=== PATIENT | female | born 1950 | race Caucasian/White ===

== ENCOUNTER → 2017-04-18 | Outpatient (CLI) | payer OTHER, MEDICARE | LOC: CIMAGING 07:09 | PROVIDERS: ATTEND Obstetrics & Gynecology Gynecology | DX: Z12.31 Encounter for screening mammogram for malignant neoplasm of breast (principal) | CPT/HCPCS: G0202 ==

== ENCOUNTER → 2018-04-22 | Outpatient (CLI) | payer OTHER, MEDICARE | LOC: CIMAGING 08:12 | PROVIDERS: ATTEND Internal Medicine | DX: Z12.31 Encounter for screening mammogram for malignant neoplasm of breast (principal) ==

== ENCOUNTER → 2018-05-06 | Outpatient (CLI) | payer OTHER, MEDICARE | LOC: CIMAGING 12:47 | PROVIDERS: ATTEND Internal Medicine | DX: R92.8 Other abnormal and inconclusive findings on diagnostic imaging of breast (principal) | CPT/HCPCS: 76641-PO ==

== ENCOUNTER → 2018-11-21 | Outpatient (CLI) | payer OTHER, MEDICARE | LOC: CIMAGING 13:18 | PROVIDERS: ATTEND Internal Medicine | DX: N64.89 Other specified disorders of breast (principal) ==